=== PATIENT | female | born 1995 | race African-American/Black ===

== ENCOUNTER 2019-02-22 13:39 | Emergency (ER) | payer SELFPAY ==
[~2019-02-22] VITALS: Ht 149.9 cm; Wt 50.0 kg
[~2019-02-22 13:39] MED LIST: PREN-55 PO
[2019-02-22 17:26] LABS: BASOPHILS % 0.7 % (0.0-2.0); EOSINOPHILS % 1.3 % (0.0-5.0); HEMATOCRIT. 36.4 % (36.0-48.0); HEMOGLOBIN. 11.8 g/dL (12.0-16.0); LYMPHOCYTES % 41.4 % (20.0-50.0); MEAN CORPUSCULAR HEMOGLOBIN 28.5 pg (28.0-32.0); MEAN CORPUSCULAR VOLUME 88.1 fL (81.0-99.0); MEAN PLATELET VOLUME 8.6 fl (7.4-10.4); MONOCYTES % 7.7 % (2.0-8.0); NEUTROPHILS % 48.9 % (40.0-76.0); PLATELET 216 x1000/uL (130-400); RED BLOOD CELL COUNT 4.13 mill/uL (4.2-5.4); RED CELL DISTRIBUTION WIDTH 13.5 % (11.6-14.6)
[2019-02-22 17:32] LABS: CHLORIDE 107 mEq/L (98-107); CLARITY URINE TURBID (CLEAR); COLOR URINE YELLOW (YELLOW); KETONES URINE TRACE (NEGATIVE); LEUKOCYTE ESTERASE URINE 3+ (NEGATIVE); NITRITE URINE NEGATIVE (NEGATIVE); OCCULT BLOOD URINE TRACE (NEGATIVE); PH URINE 6.5 (4.5-8.0); PROTEIN URINE TRACE (NEGATIVE); SPECIFIC GRAVITY URINE 1.027 (1.005-1.030)
[2019-02-22 17:36] LABS: HCG SCREEN NEGATIVE
[2019-02-22 17:42] LABS: PROTHROMBIN TIME 10.3 sec (9.6-11.0)
[2019-02-22 18:24] VITALS: BP 112/63
== END 2019-02-22 18:26 | disposition home or self-care (01) ==
LOC: ER 13:39
DX: N39.0 Urinary tract infection, site not specified (principal)
CPT/HCPCS: 36415; 81003; 81025; 84703; 99283

== ENCOUNTER 2019-10-04 15:48 | Emergency (ER) | payer MEDICAID ==
[~2019-10-04] VITALS: Ht 149.9 cm; Wt 45.0 kg
[2019-10-04] MEDS ORDERED: ACETAMINOPHEN 325MG TABLET PO STA (16:10)
[2019-10-04] MEDS ORDERED: SODIUM CHLORIDE 0.9% 1,000 ML IV ONE (16:10)
[2019-10-04] MEDS ORDERED: IBUPROFEN 600MG TABLET PO ONE (16:15)
[2019-10-04 17:16] LABS: HEMATOCRIT. 36.3 % (36.0-48.0); HEMOGLOBIN. 11.9 g/dL (12.0-16.0); MEAN CORPUSCULAR HEMOGLOBIN 28.8 pg (28.0-32.0); MEAN CORPUSCULAR VOLUME 87.7 fL (81.0-99.0); MEAN PLATELET VOLUME 8.8 fl (7.4-10.4); PLATELET 209 x1000/uL (130-400); RED BLOOD CELL COUNT 4.14 mill/uL (4.2-5.4); RED CELL DISTRIBUTION WIDTH 12.9 % (11.6-14.6)
[2019-10-04 17:20] LABS: CHLORIDE 103 mEq/L (98-107)
[2019-10-04 17:25] LABS: D-DIMER 0.33 mg/L FEU (<0.50); INR 1.1; PARTIAL THROMBOPLASTIN TIME 32.6 sec (23.4-31.0); PROTHROMBIN TIME 11.2 sec (9.6-11.0)
[2019-10-04 17:28] LABS: COLOR URINE YELLOW (YELLOW); KETONES URINE 4+ (NEGATIVE); LEUKOCYTE ESTERASE URINE NEGATIVE (NEGATIVE); NITRITE URINE NEGATIVE (NEGATIVE); OCCULT BLOOD URINE 2+ (NEGATIVE); PROTEIN URINE 1+ (NEGATIVE); SPECIFIC GRAVITY URINE 1.025 (1.005-1.030); UROBILINOGEN URINE 0.2 E.U./dL (0.2-1.0)
[2019-10-04] MEDS ORDERED: POTASSIUM CHLORIDE 20MEQ TABLET SR PO ONE (17:30)
[2019-10-04 17:31] LABS: CLARITY URINE HAZY (CLEAR)
[2019-10-04 17:31] LABS: HCG SCREEN NEGATIVE
[2019-10-04 18:30] LABS: PLATELET ESTIMATE NORMAL
[2019-10-04] MEDS ORDERED: CEFTRIAXONE 1 G PREMIX 50 ML IV ONE (18:30)
[2019-10-04] MEDS ORDERED: DEXAMETHASONE 10 MG/ML VIAL IV ONE (18:30)
[2019-10-04 21:05] VITALS: BP 117/74
== END 2019-10-04 21:09 | disposition home or self-care (01) ==
LOC: ER 15:48
DX: R50.9 Fever, unspecified (principal); Z20.828 Contact with and (suspected) exposure to other viral communicable diseases; J02.0 Streptococcal pharyngitis; R00.0 Tachycardia, unspecified
CPT/HCPCS: 36415; 71045; 80053; 81003; 81025; 82962; 83605; 83880; 84484; 84703; 85025; 85379; 85610; 85730; 87040; 87086; 87430; 87635; 93005; 96365; 96366; 96375; 99285; C9803; J0696; J1100; J7030

== ENCOUNTER 2019-10-08 14:49 | Emergency (ER) | payer MEDICAID ==
[~2019-10-08] VITALS: Ht 149.9 cm; Wt 45.0 kg
[2019-10-08] MEDS ORDERED: AMOX-494 MT (15:08)
[2019-10-08] MEDS ORDERED: IBUP-2028 PO (15:08)
[2019-10-08] MEDS ORDERED: KETOROLAC 30MG/ML VIAL IM ONE (17:00)
[2019-10-08 17:02] VITALS: BP 109/75
== END 2019-10-08 17:05 | disposition home or self-care (01) ==
LOC: ER 14:49
DX: J03.80 Acute tonsillitis due to other specified organisms (principal); B96.89 Other specified bacterial agents as the cause of diseases classified elsewhere
CPT/HCPCS: 87070; 96372; 99283; J1885

== ENCOUNTER 2020-01-13 14:10 | Emergency (ER) | payer MEDICAID ==
[~2020-01-13] VITALS: Ht 149.9 cm; Wt 46.0 kg
[~2020-01-13 14:10] MED LIST changes: +AMOX-494 MT; +IBUP-2028 PO
[2020-01-13 17:38] VITALS: BP 122/78
== END 2020-01-13 17:42 | disposition home or self-care (01) ==
LOC: ER 14:37
DX: S39.012A Strain of muscle, fascia and tendon of lower back, initial encounter (principal); X58.XXXA Exposure to other specified factors, initial encounter; Y93.89 Activity, other specified; Y92.89 Other specified places as the place of occurrence of the external cause; Y99.8 Other external cause status
CPT/HCPCS: 81025; 99282

== ENCOUNTER 2020-05-09 18:25 | Emergency (ER) | payer MEDICAID ==
[~2020-05-09] VITALS: Ht 149.9 cm; Wt 45.0 kg
[2020-05-09] MEDS ORDERED: MORPHINE SULFATE 4 MG/ML CPJ (NOT FOR IM USE) IV STA (18:57)
[2020-05-09 19:12] LABS: CLARITY URINE CLEAR (CLEAR); COLOR URINE YELLOW (YELLOW); KETONES URINE TRACE (NEGATIVE); LEUKOCYTE ESTERASE URINE NEGATIVE (NEGATIVE); NITRITE URINE NEGATIVE (NEGATIVE); OCCULT BLOOD URINE NEGATIVE (NEGATIVE); PH URINE 6.5 (4.5-8.0); PROTEIN URINE NEGATIVE (NEGATIVE); SPECIFIC GRAVITY URINE 1.036 (1.005-1.030)
[2020-05-09] MEDS ORDERED: SODIUM CHLORIDE 0.9% 1,000 ML IV ONE (19:15)
[2020-05-09 19:44] LABS: BASOPHILS % 0.6 % (0.0-2.0); EOSINOPHILS % 1.3 % (0.0-5.0); HEMATOCRIT. 35.5 % (36.0-48.0); HEMOGLOBIN. 11.6 g/dL (12.0-16.0); LYMPHOCYTES % 47.8 % (20.0-50.0); MEAN CORPUSCULAR HEMOGLOBIN 28.4 pg (28.0-32.0); MEAN CORPUSCULAR VOLUME 87.3 fL (81.0-99.0); MEAN PLATELET VOLUME 8.9 fl (7.4-10.4); MONOCYTES % 7.4 % (2.0-8.0); NEUTROPHILS % 42.9 % (40.0-76.0); PLATELET 239 x1000/uL (130-400); RED BLOOD CELL COUNT 4.06 mill/uL (4.2-5.4); RED CELL DISTRIBUTION WIDTH 13.3 % (11.6-14.6)
[2020-05-09 19:53] LABS: PROTHROMBIN TIME 10.3 sec (9.6-11.0)
[2020-05-09 20:04] LABS: CHLORIDE 106 mEq/L (98-107)
[2020-05-09 20:10] LABS: HCG SCREEN NEGATIVE
[2020-05-09] MEDS ORDERED: POTASSIUM CHLORIDE 20MEQ TABLET SR PO NR (20:30)
[2020-05-10] VITALS: BP 117/69
== END 2020-05-10 00:34 | disposition home or self-care (01) ==
LOC: ER 18:25
DX: N83.201 Unspecified ovarian cyst, right side (principal); Z79.899 Other long term (current) drug therapy
CPT/HCPCS: 36415; 76830; 76856; 80053; 81003; 81025; 83690; 84703; 85025; 85610; 93005; 96361; 96374; 99285; J2270; J7030

== ENCOUNTER 2020-10-10 11:44 | Emergency (ER) | payer SELFPAY ==
[~2020-10-10] VITALS: Ht 149.9 cm; Wt 50.0 kg
[2020-10-10] MEDS ORDERED: ACETAMINOPHEN 500MG TABLET PO ONE (16:15)
[2020-10-10 16:52] LABS: BASOPHILS % 0.3 % (0.0-2.0); EOSINOPHILS % 0.6 % (0.0-5.0); HEMATOCRIT. 36.3 % (36.0-48.0); HEMOGLOBIN. 12.3 g/dL (12.0-16.0); LYMPHOCYTES % 41.5 % (20.0-50.0); MEAN CORPUSCULAR HEMOGLOBIN 29.5 pg (28.0-32.0); MEAN PLATELET VOLUME 8.9 fl (7.4-10.4); MONOCYTES % 5.9 % (2.0-8.0); NEUTROPHILS % 51.7 % (40.0-76.0); PLATELET 281 x1000/uL (130-400); RED BLOOD CELL COUNT 4.17 mill/uL (4.2-5.4)
[2020-10-10 16:53] LABS: CHLORIDE 106 mEq/L (98-107)
[2020-10-10 17:19] LABS: B-HCG QUANTITATIVE 29164 mIU/mL (<3)
[2020-10-10 17:39] LABS: CLARITY URINE CLOUDY (CLEAR); COLOR URINE YELLOW (YELLOW); KETONES URINE TRACE (NEGATIVE); LEUKOCYTE ESTERASE URINE 2+ (NEGATIVE); NITRITE URINE NEGATIVE (NEGATIVE); OCCULT BLOOD URINE NEGATIVE (NEGATIVE); PROTEIN URINE NEGATIVE (NEGATIVE); SPECIFIC GRAVITY URINE 1.022 (1.005-1.030)
[2020-10-10] MEDS ORDERED: MORPHINE SULFATE 4 MG/ML CPJ (NOT FOR IM USE) IV STA (18:09)
[2020-10-10] MEDS ORDERED: ONDANSETRON HCL 4MG/2ML INJ IV STA (18:09)
[2020-10-10] MEDS ORDERED: CEPH500C2 MT (18:33)
[2020-10-10 18:36] VITALS: BP 107/64
== END 2020-10-10 18:59 | disposition home or self-care (01) ==
LOC: ER 11:44
DX: O23.41 Unspecified infection of urinary tract in pregnancy, first trimester (principal); Z3A.01 Less than 8 weeks gestation of pregnancy
CPT/HCPCS: 36415; 76801; 76817; 80053; 81003; 81025; 83690; 84702; 85025; 86850; 86900; 86901; 87086; 96374; 96375; 99284; J2270; J2405

== ENCOUNTER 2021-04-10 12:58 | Observation (INO) | payer OTHER ==
[~2021-04-10] VITALS: Ht 149.9 cm; Wt 54.9 kg
[~2021-04-10 12:58] MED LIST changes: +CEPH500C2 MT
[2021-04-10] MEDS ORDERED: ACETAMINOPHEN 500MG TABLET PO SCH (14:30)
[2021-04-10] MEDS ORDERED: LACTATED RINGERS 1,000 ML IV SCH (14:30)
[2021-04-10 15:29] LABS: CLARITY URINE CLEAR (CLEAR); COLOR URINE YELLOW (YELLOW); KETONES URINE NEGATIVE (NEGATIVE); LEUKOCYTE ESTERASE URINE NEGATIVE (NEGATIVE); NITRITE URINE NEGATIVE (NEGATIVE); OCCULT BLOOD URINE NEGATIVE (NEGATIVE); PROTEIN URINE NEGATIVE (NEGATIVE); UROBILINOGEN URINE 0.2 E.U./dL (0.2-1.0)
[2021-04-10] MEDS ORDERED: TERBUTALINE SULFATE 1MG/ML VIAL SUBCUT PRN (16:30)
== END 2021-04-10 17:10 | disposition home or self-care (01) ==
LOC: 8 EST A/PP 12:58
PROVIDERS: ADMIT Specialist; ATTEND Specialist
DX: O26.893 Other specified pregnancy related conditions, third trimester (principal); R10.9 Unspecified abdominal pain; Z3A.31 31 weeks gestation of pregnancy
CPT/HCPCS: 59025; 81003; 96360; 96361; 96372; G0378; J3105; 99281

== ENCOUNTER 2021-05-17 18:10 | Observation (INO) | payer MEDICAID, OTHER ==
[~2021-05-17] VITALS: Ht 149.9 cm; Wt 59.9 kg
[~2021-05-17 18:10] MED LIST changes: -AMOX-494 MT; -IBUP-2028 PO
[2021-05-17] MEDS ORDERED: DEXT 5%/LACTATED RINGERS 1,000 ML IV ONE (21:15)
[2021-05-17] MEDS ORDERED: DEXT 5%/LACTATED RINGERS 1,000 ML IV SCH (21:15)
== END 2021-05-17 22:30 | disposition home or self-care (01) ==
LOC: 8 EST LDRP 18:10
PROVIDERS: ADMIT Obstetrics & Gynecology; ATTEND Obstetrics & Gynecology
DX: O42.92 Full-term premature rupture of membranes, unspecified as to length of time between rupture and onset of labor (principal); Z79.899 Other long term (current) drug therapy; Z3A.37 37 weeks gestation of pregnancy
CPT/HCPCS: 76805; 76817; 76818; G0378; 59025

== ENCOUNTER 2024-04-21 09:57 | Emergency (ER) | payer MEDICAID ==
[~2024-04-21] VITALS: Ht 149.9 cm; Wt 61.0 kg
[2024-04-21 10:16] VITALS: O2SAT 99
[2024-04-21 11:55] LABS: CHLORIDE 105 mEq/L (98-107); POTASSIUM 3.9 mEq/L (3.5-5.1); SODIUM 136 mEq/L (136-145)
[2024-04-21 11:56] LABS: BASOPHILS % 0.6 % (0.0-2.0); CALCIUM 9.4 mg/dL (8.7-10.4); CARBON DIOXIDE 26 mEq/L (21-32); EOSINOPHILS % 1.2 % (0.0-5.0); HEMATOCRIT. 37.8 % (36.0-48.0); HEMOGLOBIN. 12.2 g/dL (12.0-16.0); LYMPHOCYTES % 38.4 % (20.0-50.0); MEAN CORPUSCULAR HEMOGLOBIN 28.6 pg (28.0-32.0); MEAN CORPUSCULAR HGB CONC 32.4 g/dL (31.0-37.0); MEAN CORPUSCULAR VOLUME 88.1 fL (81.0-99.0); MEAN PLATELET VOLUME 8.9 fl (7.4-10.4); MONOCYTES % 5.8 % (2.0-8.0); PLATELET 258 x1000/uL (130-400); RED BLOOD CELL COUNT 4.29 mill/uL (4.2-5.4); RED CELL DISTRIBUTION WIDTH 13.2 % (11.6-14.6); WHITE BLOOD COUNT 6.6 x1000/uL (4.5-11.0)
[2024-04-21 12:01] LABS: CREATININE 0.7 mg/dL (0.6-1.0); GLUCOSE 97 mg/dL (70-105); UREA NITROGEN BLOOD 9 mg/dL (9-23)
[2024-04-21 12:03] LABS: ALANINE AMINOTRANSFERASE 8 IU/L (10-49); ASPARTATE AMINOTRANSFERASE 16 IU/L (<34); BILIRUBIN TOTAL 0.9 mg/dL (0.1-1.0); PROTEIN TOTAL 7.5 g/dL (6.0-8.3)
[2024-04-21 12:19] LABS: TROPONIN I HIGH SENSITIVITY < 4 ng/L (3.0-34)
[2024-04-21] MEDS ORDERED: FAMO-135 MT (12:41)
[2024-04-21] MEDS: MAGNESIUM/ALUMINUM HYDROXIDE/SIMETHICONE 30ML UDC PO ONE (12:54)
[2024-04-21] MEDS: FAMOTIDINE 20MG TABLET PO ONE (12:54)
[2024-04-21 13:06] VITALS: BP 129/88; PULSE 63; RESP 18; TEMP 37.1; O2SAT 99
== END 2024-04-21 13:11 | disposition home or self-care (01) ==
LOC: ER 10:05
DX: R07.9 Chest pain, unspecified (principal); Z98.890 Other specified postprocedural states
CPT/HCPCS: 36415; 71045; 80053; 84484; 85025; 93005; 99285

== ENCOUNTER 2024-09-03 10:08 | Emergency (ER) | payer MEDICAID ==
[~2024-09-03] VITALS: Ht 157.5 cm; Wt 58.0 kg
[~2024-09-03 10:08] MED LIST changes: -CEPH500C2 MT; +FAMO-135 MT; -PREN-55 PO
[2024-09-03 10:11] VITALS: O2SAT 99
[2024-09-03 10:49] LABS: BASOPHILS % 0.4 % (0.0-2.0); EOSINOPHILS % 0.3 % (0.0-5.0); HEMATOCRIT. 37.2 % (36.0-48.0); MEAN CORPUSCULAR HEMOGLOBIN 28.5 pg (28.0-32.0); MEAN CORPUSCULAR HGB CONC 32.2 g/dL (31.0-37.0); MEAN CORPUSCULAR VOLUME 88.5 fL (81.0-99.0); MEAN PLATELET VOLUME 8.8 fl (7.4-10.4); MONOCYTES % 4.9 % (2.0-8.0); NEUTROPHILS % 77.4 % (40.0-76.0); PLATELET 277 x1000/uL (130-400); RED CELL DISTRIBUTION WIDTH 14.2 % (11.6-14.6); WHITE BLOOD COUNT 12.9 x1000/uL (4.5-11.0)
[2024-09-03 11:02] LABS: CHLORIDE 105 mEq/L (98-107); POTASSIUM 3.4 mEq/L (3.5-5.1); SODIUM 141 mEq/L (136-145)
[2024-09-03 11:03] LABS: CARBON DIOXIDE 24 mEq/L (21-32)
[2024-09-03 11:08] LABS: CREATININE 0.7 mg/dL (0.6-1.0); GLUCOSE 118 mg/dL (70-105); UREA NITROGEN BLOOD 7 mg/dL (9-23)
[2024-09-03 11:14] LABS: HCG SCREEN NEGATIVE
[2024-09-03] MEDS ORDERED: MAGNESIUM/ALUMINUM HYDROXIDE/SIMETHICONE 30ML UDC PO STA (11:27)
[2024-09-03] MEDS ORDERED: ONDANSETRON 4MG ODT PO STA (11:27)
[2024-09-03] MEDS ORDERED: DICYCLOMINE 10 MG/5 ML ORAL SYR PO STA (11:27)
[2024-09-03 11:31] LABS: CLARITY URINE CLOUDY (CLEAR); COLOR URINE YELLOW (YELLOW); GLUCOSE URINE NEGATIVE (NEGATIVE); KETONES URINE NEGATIVE (NEGATIVE); LEUKOCYTE ESTERASE URINE 3+ (NEGATIVE); NITRITE URINE NEGATIVE (NEGATIVE); OCCULT BLOOD URINE 1+ (NEGATIVE); PROTEIN URINE TRACE (NEGATIVE); SPECIFIC GRAVITY URINE 1.013 (1.005-1.030); UROBILINOGEN URINE 0.2 E.U./dL (0.2-1.0)
[2024-09-03] MEDS: DICYCLOMINE HCL 10MG CAPSULE PO NR (11:43)
[2024-09-03] MEDS: MAGNESIUM/ALUMINUM HYDROXIDE/SIMETHICONE 30ML UDC PO NR (11:43)
[2024-09-03] MEDS: ONDANSETRON 4MG ODT PO NR (11:43)
[2024-09-03] MEDS: KETOROLAC 30MG/ML VIAL IM ONE (11:51)
[2024-09-03 12:12] LABS: ALANINE AMINOTRANSFERASE 10 IU/L (10-49); ALBUMIN 4.3 g/dL (3.2-4.8); ASPARTATE AMINOTRANSFERASE 15 IU/L (<34); BILIRUBIN DIRECT 0.2 mg/dL (<=3.0); BILIRUBIN TOTAL 0.8 mg/dL (0.1-1.0); PROTEIN TOTAL 7.2 g/dL (6.0-8.3)
[2024-09-03 12:14] LABS: SQUAMOUS EPITHELIAL CELL URINE 1+ /lpf (RARE/1+)
[2024-09-03 12:17] LABS: BACTERIA URINE 3+; WBC URINE 25-50 /hpf (0-2)
[2024-09-03 12:22] LABS: RBC URINE 0-2 /hpf (0-2)
[2024-09-03] MEDS ORDERED: IBUP-2029 MT (12:35)
[2024-09-03] MEDS ORDERED: CEFP200T14 MT (12:35)
[2024-09-03 12:53] VITALS: BP 121/82; PULSE 79; RESP 16; TEMP 36.9; O2SAT 99
== END 2024-09-03 12:53 | disposition home or self-care (01) ==
LOC: ER 10:08
DX: N10 Acute pyelonephritis (principal)
CPT/HCPCS: 80076; 80048; 81003; 81025; 84703; 85025; 87086; 87186; 87077; 36415; 71045; 76770; 96372; 99285; Q0162; J1885; Z7610 ×2